=== PATIENT | female | born 1990 | race Caucasian/White ===

== ENCOUNTER 2016-10-10 10:15 | Emergency (ER) | payer OTHER, BC ==
[~2016-10-10] VITALS: Ht 160 cm; Wt 108.9 kg
[~2016-10-10 10:15] MED LIST: AVPAK EXTENDED100 MG PO; CLARITIN 10MG T10 MG PO; DILANTIN 100MG100 MG; FLUOXETINE HYDR40 MG PO; LORTAB 5/500 501 TAB PO; MELOXICAM15 MG PO; METHOCARBAMOL500 M1 PO; NAPROSYN 500MG500 MG PO; OMEPRAZOLE20 MG PO; PROZAC 20MG CAP20 MG PO; RANITIDINE HCL150 MG PO; TOPAMAX100 MG PO; TOPIRAMATE25 MG PO; VISTARIL25 M1 PO
--- NOTE | 2016-10-10 11:18 | Urgent Treatment Center Report ---
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 DENIES ANY INJURY THOUGHT MAYBE SHE WAS HAVING SOME KIND OF ODD SYMPTOMA A RESULT OF HER ORAL INTAKE WITH GASTRIC SLEEVE SURGERY A FEW MONTHS PRIOR Location if Accident: Onset of symptoms date/time:10/10/1607/16/1020 or onset unknown for: Have you (or family members/close friends) recently traveled outside the [place]? N If Yes, where/when: Have you had exposure to infectious disease within the past month? TB? Other? Specify: Patient complaining of pain that work her up this morning in her left shoulder blade area that hurts down left shoulder and arm. States that it does not hurt unless she moves it and has not had any injury to the area. States that it feels like the muscle is really tight ALLERGIES Coded Allergies: codeine (Mild, 10/10/16) ondansetron (From ZOFRAN ( HYDROCHLORIDE)) (Mild, 10/10/16) penicillin G (Mild, 10/10/16) Uncoded Allergies: DARVOCET (HIVES AND ITCH 06/28/11) Home Medications Active Scripts Hydroxyzine Pamoate (Vistaril 25MG CAP) 25 MG PO QHSP #12 CAP Prov: 02/15/13 Reported Medications Methocarbamol 500 MG PO BID #60 30 Days Loratadine (Claritin 10MG) 10 MG PO DAILY #30 30 Days Omeprazole (Omeprazole 20MG) 20 MG PO DAILY #30 30 Days PHENYTOIN SODIUM EXTENDED (Phenytoin Sodium Extended) 100 MG PO BID #90 30 Days Meloxicam (Meloxicam 15MG) 15 MG PO DAILY #30 30 Days Topiramate 25 MG PO BID #60 30 Days Fluoxetine Hcl (Fluoxetine Hydrochloride) 40 MG PO DAILY #30 30 Days NAPROXEN (NAPROSYN 500MG TAB) 500 MG PO PRN #20 10 Days History Medical History General Angina: No [place]: No Hypertension? No Hyperlipidemia? No CHF? No COPD? No Asthma? Yes CVA? No Seizures? Yes Diabetes? No GB Disease: No MRSA? No TB? No Cancer? No Immunization HX DT/Tetanus NOT SURE Surgical Hx Previous Surgery?Y C SECTION ORAL SURGERY GASTRIC SLEEVE Social History Smoking Hx Smoker: Never Smoker Tobacco: No Alcohol Alcohol: No Review of Systems All Other Systems Reviewed and Negative Physical Exam Vital Signs Vital Signs Date Time Temp Pulse Resp B/P Pulse O2 O2 Flow FiO2 Ox Delivery Rate 10/10 1153 16 10/10 1041 98.3 72 18 122/60 98 10/10 1019 98.3 72 18 98 General Appearance normal appearance Respiratory Status Yes: trachea midline, chest symmetrical, non tender chest. No: respiratory distress. Cardiovascular normal exam Extremities limited range of motion, Muscle in shoulder area tight, pain with movement of left arm, complaining of pain in the left shoulder blade area when she moves the right arm to high, thinks she might have slept wrong on it and having a muscle spasm Neurologic alert Medical Decision Making LABS/Meds/Orders Pt receiving controlled substance in ED? No Results/Orders Laboratory Tests 10/10/16 1130: Urine Test NEGATIVE Current Medication Orders Sig/Angelica Start time Last Medication Dose Route Stop Time Status Admin Ketorolac 60 MG ONCE ONE 10/10 1200 AC 10/10 Tromethamine IM 10/10 1201 1153 Ketorolac 0 .STK-MED ONE 10/10 1152 DC Tromethamine .ROUTE Orders Procedure Date/time Status [facility] URINE 10/10 1130 Complete Departure Departure Time of Disposition 1152 Disposition DC Home or Self Care(routine) Clinical Impression Primary Impression: Muscle spasm of left shoulder Condition STABLE Referrals TEREZA RANDOLPH (Family) Patient Instructions DI for Shoulder Pain Additional Instructions Take medication as prescribed FOllow up with yosef doctor Return to [facility] if needed Discharge Counseling Counseled pt/family regarding diagnosis, medications/RX, home care Prescriptions Current Visit Scripts Methocarbamol (Robaxin 500MG) 500 MG PO BID #14 TAB at 1157
[2016-10-10] MEDS ORDERED: ROBAXIN 500 MG500 MG PO (11:56)
[2016-10-10 12:01] VITALS: BP 122/60
== END 2016-10-10 12:02 | disposition home or self-care (01) ==
LOC: ER 10:15 → UTC 10:32
DX: M62.838 Other muscle spasm (principal)